=== PATIENT | female | born 1965 | race African-American/Black ===

== ENCOUNTER → 2018-11-14 | Outpatient (CLI) | payer MEDICARE, OTHER ==
[~2018-11-14] MED LIST: ALBU8.5H8 IH; ALLERGY MED; AMLO5TAB9 PO; ASPI-1198 PO; ATEN25TA PO; DOCU250C91 PO; DULO60CA44 PO; ENAL10TA2 PO; FURO-152 PO; HYDR12.530 PO; NAPR-1183 PO; NAPR250T4 PO; OMEP10CA2 PO; SERVENT; SIMV5TAB2 PO; TOPI25TA42 PO; TRAM50TA2 PO; TRAMADOL; [UNRECOGNIZED DRUG - OTHER]
== END | disposition home or self-care (01) ==
LOC: RADPV 11:19
PROVIDERS: ATTEND Internal Medicine
DX: R05 Cough (principal); Z72.0 Tobacco use

== ENCOUNTER → 2019-04-23 | Outpatient (CLI) | payer OTHER | END | disposition home or self-care (01) | LOC: RESP 09:02 | PROVIDERS: ATTEND Internal Medicine | DX: R05 Cough (principal) | CPT/HCPCS: 94010; 94726; 94727; 94729 ==

== ENCOUNTER → 2021-10-03 | Outpatient (CLI) | payer OTHER ==
[~2021-10-03] MED LIST changes: +AMLO-257 PO; -AMLO5TAB9 PO; +ATEN-73 PO; -ATEN25TA PO; +DULO-113 PO; -DULO60CA44 PO; +ENAL-90 PO; -ENAL10TA2 PO; +NAPR-1197 PO; -NAPR250T4 PO
== END | disposition home or self-care (01) ==
LOC: RADMN 10:26
PROVIDERS: ATTEND Physical Medicine & Rehabilitation
DX: M16.11 Unilateral primary osteoarthritis, right hip (principal); M47.816 Spondylosis without myelopathy or radiculopathy, lumbar region; M46.1 Sacroiliitis, not elsewhere classified
CPT/HCPCS: 73502